=== PATIENT | female | born 1980 | race Caucasian/White ===

== ENCOUNTER 2017-04-14 08:49 | Emergency (ER) | payer BC ==
[~2017-04-14] VITALS: Ht 160 cm; Wt 113.4 kg
[~2017-04-14 08:49] MED LIST: METHYLPRED4 MG; [UNRECOGNIZED DRUG - OTHER]
--- NOTE | 2017-04-14 10:42 | Diagnostic Imaging Report ---
History: Headache and vomiting Comparison studies: None Technique: Axial images were obtained from the skull base to the vertex. Coronal and sagittal reconstructions obtained from the axial data. Findings: Scalp/skull: No abnormalities. No fractures, blastic or lytic lesions. Extra-axial spaces: No masses. No fluid collections. Brain sulci: Appropriate for age. Ventricles: Normal in size and configuration. No hydrocephalus. Parenchyma: No abnormal densities. No masses, hemorrhage, acute or chronic cortical vascular insults. Sellar/suprasellar region: No abnormalities Craniocervical junction: Patent foramen magnum. No Chiari one malformation. IMPRESSION: No abnormalities . Signed by: DR Dariel Walker M.D. on 04/14/2017 10:38 AM
[2017-04-14] MEDS ORDERED: KETOROLAC TROMETHAMINE 60 MG/2 ML VIAL IM ONE ×2 (11:30)
[2017-04-14 12:39] VITALS: BP 139/74
== END 2017-04-14 12:45 | disposition home or self-care (01) ==
LOC: ER 08:49
DX: G43.009 Migraine without aura, not intractable, without status migrainosus (principal)
CPT/HCPCS: 70450; 87400; 99283; J1885

== ENCOUNTER → 2017-09-07 | Outpatient (CLI) | payer BC ==
[2017-09-07 08:39] LABS: BASOPHILS # (AUTO) 0.1 (0.0-0.1); BASOPHILS % 0.7 % (0.0-1.0); EOSINOPHILS # (AUTO) 0.1 (0.0-0.4); EOSINOPHILS % 1.3 % (0.0-6.0); HEMATOCRIT 37.2 % (34.2-44.1); HEMOGLOBIN 12.3 g/dL (12.0-16.0); LYMPHOCYTES # (AUTO) 2.8 (1.0-3.2); LYMPHOCYTES % 27.4 % (18.0-39.1); MEAN CORPUSCULAR HEMOGLOBIN 29.5 pg (28-32); MEAN CORPUSCULAR HGB CONC 33.1 g/dL (31-35); MEAN CORPUSCULAR VOLUME 89.2 fL (81-99); MONOCYTES # (AUTO) 0.8 (0.2-0.8); MONOCYTES % 7.7 % (4.4-11.3); NEUTROPHILS # (AUTO) 6.4 (2.1-6.9); NEUTROPHILS % 62.7 % (38.7-80.0); PLATELET COUNT 295 x10e3/uL (140-360); RED BLOOD COUNT 4.17 x10e6/uL (3.6-5.1); RED CELL DISTRIBUTION WIDTH 13.2 % (11.7-14.4)
[2017-09-07 09:33] LABS: ALANINE AMINOTRANSFERASE 17 IU/L (0-55); ALBUMIN 3.4 g/dL (3.5-5.0); ALKALINE PHOSPHATASE 69 IU/L (40-150); ANION GAP 12.2 mmol/L (8-16); BLOOD UREA NITROGEN 8 mg/dL (7-26); BUN/CREATININE RATIO 11 (6-25); CALCIUM 9.3 mg/dL (8.4-10.2); CARBON DIOXIDE 25 mmol/L (22-29); CHLORIDE 107 mmol/L (98-107); CHOL/HDL RATIO 3.6 (3.0-3.6); CHOLESTEROL 133 MD/DL (0-199); CREATININE, SERUM 0.76 mg/dL (0.57-1.11); EST GLOMERULAR FILTRATION RATE > 60 ML/MIN (60-); GLUCOSE 89 mg/dL (74-118); HDL CHOLESTEROL 37 MG/DL (40-60); LDL CHOLESTEROL 70 MG/DL (60-130); POTASSIUM 4.2 mmol/L (3.5-5.1); SODIUM 140 mmol/L (136-145); TRIGLYCERIDES 128 MG/DL (0-149)
[2017-09-07 09:54] LABS: FREE THYROXINE INDEX 1.9657 (1.4-3.8); THYROID STIMULATING HORMONE 1.345 uIU/mL (0.350-4.940)
== END ==
LOC: LAB 08:24
PROVIDERS: ATTEND Family Medicine
CPT/HCPCS: 36415; 80053; 80061; 83036; 84436; 84443; 84479; 85025

== ENCOUNTER → 2017-12-24 | Outpatient (CLI) | payer BC | LOC: MAMMO 12:48 | PROVIDERS: ATTEND Obstetrics & Gynecology | DX: Z12.31 Encounter for screening mammogram for malignant neoplasm of breast (principal) | CPT/HCPCS: 77067 ==

== ENCOUNTER → 2019-08-16 | Outpatient (CLI) | payer BC | LOC: MAMMO 11:23 | PROVIDERS: ATTEND Family Medicine | DX: Z12.31 Encounter for screening mammogram for malignant neoplasm of breast (principal) | CPT/HCPCS: 77067 ==

== ENCOUNTER → 2019-11-08 | Outpatient (CLI) | payer BC ==
[2019-11-08 10:28] LABS: CHOL/HDL RATIO 4.3 (3.0-3.6)
[2019-11-08 10:33] LABS: THYROID STIMULATING HORMONE 1.573 uIU/mL (0.350-4.940)
== END ==
LOC: LAB 08:20
PROVIDERS: ATTEND Family Medicine
DX: Z13.1 Encounter for screening for diabetes mellitus (principal); Z13.220 Encounter for screening for lipoid disorders; Z76.0 Encounter for issue of repeat prescription; F41.9 Anxiety disorder, unspecified; G47.00 Insomnia, unspecified
CPT/HCPCS: 36415; 80061; 83036; 84443

== ENCOUNTER 2020-01-29 20:24 | Emergency (ER) | payer BC ==
[~2020-01-29] VITALS: Ht 160 cm; Wt 111.1 kg
[2020-01-29] MEDS ORDERED: DEXAMETHASONE6 MG PO (21:01)
[2020-01-29] MEDS ORDERED: AZITHROMYCIN250 MG PO (21:01)
[2020-01-29] MEDS ORDERED: THERAFLU COLD1 EAC4 PO (21:01)
--- NOTE | 2020-01-29 21:01 | Emergency Department Note ---
History of Present Illnes History of Present Illness Chief Complaint: Flu Like Symptoms History of Present Illness This is a 39 year old female c/o flu like symptoms for 3 days and she has been exposed to COVID . she had flu vaccine 4 days ago Historian: Patient Arrival Mode: Car Patient Access Coordinator Required: No Onset (how long ago): day(s) Radiation: Reports non-radiation Duration (how long): day(s) Timing of current episode: constant Progression: worsening Chronicity: new Relieving factors: none Exacerbating factors: none Associated symptoms: Reports cough, Reports fever/chills, Reports malaise, Reports weakness Treatments prior to arrival: none Past Medical/Family History Physician Review I have reviewed the patient's past medical and family history. Any updates have been documented here. Past Medical History Recent Fever: No Clinical Suspicion of Infectio: No New/Unexplained Change in Ment: No Past Medical History: Anxiety, Depression Other Medical History: Past Medical History Anxiety, Depression Past Surgical History: Other Surgery 2 C-SECTIONS Past Surgical History: Other Surgery: 2 C-SECTIONS Social History Smoking Cessation: Never Smoker Counseling Performed: No Alcohol Use: None Any Illegal Drug Use: No Physically hurt or threatened: No (works at [employer]) Other Any Pre-Existing Lines (PICC,: No Review of Systems Review of Systems Constitutional: Reports as per HPI, Reports malaise, Reports weakness EENTM: Reports as per HPI, Reports tearing, Reports nose congestion Cardiovascular: Reports no symptoms Respiratory: Reports as per HPI, Reports chest congestion, Reports cough Gastrointestinal: Reports no symptoms Genitourinary: Reports no symptoms Musculoskeletal: Reports no symptoms Integumentary: Reports no symptoms Neurological: Reports no symptoms Psychological: Reports no symptoms Endocrine: Reports no symptoms Hematological/Lymphatic: Reports no symptoms Physical Exam Related Data Allergies: Coded Allergies: No Known Allergies (Unverified , 10/21/11) Triage Vital Signs Vital Signs Date Time Temp Pulse Resp B/P (MAP) Pulse Ox O2 Delivery O2 Flow Rate FiO2 01/29/20 20:40 96.9 71 18 163/96 99 Vital signs reviewed: Yes Physical Exam CONSTITUTIONAL Constitutional: Present well-developed, Present well-nourished HENT HENT: Present normocephalic, Present atraumatic, Present oropharynx marge ar/moist, Present nasal discharge, Present nasal congestion HENT L/R: Present left ext ear normal, Present right ext ear normal EYES Eyes: Reports PERRL, Reports conjunctivae normal NECK Neck: Present ROM normal PULMONARY Pulmonary: Present effort normal, Present breath sounds normal CARDIOVASCULAR Cardiovascular: Present regular rhythm, Present heart sounds normal, Present capillary refill normal, Present normal rate GASTROINTESTINAL Abdominal: Present soft, Present nontender, Present bowel sounds normal GENITOURINARY Genitourinary: Present exam deferred SKIN Skin: Present warm, Present dry MUSCULOSKELETAL Musculoskeletal: Present ROM normal NEUROLOGICAL Neurological: Present alert, Present oriented x 3, Present no gross motor or sensory deficits PSYCHOLOGICAL Psychological: Present mood/affect normal, Present judgement normal Results Laboratory Lab results reviewed: Yes Laboratory comments flu strep negative Assessment & Plan Medical Decision Making MDM upper respiratory track infection Reassessment Reassessment time: 21:16 Assessment & Plan Final Impression: (1) Upper respiratory infection (2) Suspected COVID-19 virus infection (3) Counseled about COVID-19 virus infection Depart Disposition: HOME, SELF-CARE Last Vital Signs Date Time Temp Pulse Resp B/P (MAP) Pulse Ox O2 Delivery O2 Flow Rate FiO2 01/29/20 20:40 96.9 71 18 163/96 99 Home Meds Active Scripts Azithromycin (Z-KATHRYN) 250 Mg Tablet, 250 MG PO UD, #1 UDPKT Z-Pack Prov:KIRK ALMARAZ MD 01/29/20 Dexamethasone (DEXAMETHASONE) 6 Mg Tablet, 1 TAB PO DAILY, #5 Prov:KIRK ALMARAZ MD 01/29/20 Diphenhydra/Phenyleph/Acetamin (THERAFLU COLD AND COUGH POWDER) 1 Each Powd.pack, 1 PACKET PO Q6H PRN for fever and or pain, #12 Prov:KIRK ALMARAZ MD 01/29/20 Reported Medications Methylprednisolone (Methylpred) 4 Mg Tab.ds.pk 10/21/11 Hydrocodone/Ibuprofen (Reprexain 5-200 Mg Tablet) 1 Each Tablet 10/21/11 Physician Attestation Provider Attestation covid testing sent, since pt is high risk, will consider her as covid patient KIRK ALMARAZ MD Jan 29, 2020 21:01
--- OUTSIDE RECORDS SUMMARY | 2020-01-29 22:21 | XMS REPORT | Continuity of Care Document ---
Author Author [facility] t Organization [facility] Address [address] [place] [address] Dr. Richey [address] [place] [id number] Phone Unavailable Care Team Providers Care Perfect Binder Feeder Offbearer Name Role Phone Hector NORMAN Attphys Unavailable Nicole WILLS Attphys Unavailable Yolande DAIGLE Attphys Unavailable Problems This patient has no known problems. Allergies, Adverse Reactions, Alerts This patient has no known allergies or adverse reactions. Medications This patient has no known medications. Procedures This patient has no known procedures. Results Test Description Test Time Test Comments Results Result Comments Source MAMMOGRAPHY DIGITAL SCR BILAT 2019-08-16 12:58:00 [place] [address] Patient Name: SHANNAN ARREOLA MR #: [id number] : 1980 Age/Sex: 38/F Req #: [id number] [facility] Physician: Ordered by: SANJUANA NORMAN MD Report #: [id number] Location: MAMMO Room/Bed: Procedure: [id number] MG/MAMMOGRAPHY DIGITAL SCR BILAT Exam Date: 08/16/19 Exam Time: 1140 REPORT STATUS: Signed #[id number] - MGSCRBIL #BILATERAL DIGITAL SCREENING MAMMOGRAM WITH CAD: 08/16/2019 CLINICAL: Routine screening. Comparison is made to exams dated: 12/24/2017 mammogram and 06/26/2016 mammogram - [facility]. There are scattered fibroglandular elements in both breasts. Current study was also evaluated with a Computer Aided Detection (CAD) system. There are post operative findings in the right breast. No significant masses, calcifications, or other findings are seen in either breast. There has been no significant interval change. IMPRESSION: BENIGN There is no mammographic evidence of malignancy. A 1 year screening mammogram is recommended. The patient will be notified by letter of the results. JULITA weaver/geena:09/01/2019 16:12:08 Time Lock Expert: Barbara OAKLEY(R)(M), [facility] letter sent: Compared to Prior B9 Mammogram BI-RADS: 2 Benign Dictated By: JULITA COLON MD 161 Transcribed By: GEENA on 09/01/19 161 COPY TO: SANJUANA NORMAN MD MAMMOGRAPHY DIGITAL SCR BILAT 2017-12-24 14:24:00 [place] [address] Patient Name: SHANNAN ARREOLA MR #: [id number] : 1980 Age/Sex: 37/F Req #: [id number] Adm Physician: Ordered by: OSCAR WILLS Report #: [id number] Location: MAMMO Room/Bed: Procedure: [id number] MG/MAMMOGRAPHY DIGITAL SCR BILAT Exam Date: 12/24/17 Exam Time: 1300 REPORT STATUS: Signed #[id number] - MGSCRBIL #BILATERAL DIGITAL SCREENING MAMMOGRAM WITH CAD: 12/24/2017 CLINICAL: Routine screening. Comparison is made to exams dated: 06/26/2016 mammogram and 08/28/2015 mammogram - [facility]. There are scattered fibroglandular elements in both breasts. Current study was also evaluated with a Computer Aided Detection (CAD) system. No new significant masses, calcifications, or other findings are seen in either breast. There are biopsy clips in the right breast. IMPRESSION: BENIGN There is no mammographic evidence of malignancy. A 1 year screening mammogram is recommended. The patient will be notified by letter of the results. Cliff Crook M.D. ks/:12/28/2017 10:40:16 Time Lock Expert: Barbara OAKLEY(R)(M), [facility] letter sent: Normal Exam Mammogram BI-RADS: 2 Benign Dictated By: CLIFF CROOK MD 1040 Transcribed By: GEENA on 12/28/17 1040 COPY TO: OSCAR WILLS CT BRAIN WO [place] [address] Patient Name: SHANNAN ARREOLA MR #: [id number] : 1980 Age/Sex: 36/F Req #: [id number] Adm Physician: Ordered by: ASHWINI DAIGLE MD Report #: [id number] Location: ER Room/Bed: Procedure: [id number] CT/CT BRAIN WO Exam Date: 04/14/17 Exam Time: 0935 REPORT STATUS: Signed History: Headache and vomiting Comparison studies: None Technique: Axial images were obtained from the skull base to the vertex. Coronal and sagittal reconstructions obtained from the axial data. Findings: Scalp/skull: No abnormalities. No fractures, blastic or lytic lesions. Extra-axial spaces: No masses. No fluid collections. Brain sulci: Appropriate for age. Ventricles: Normal in size and configuration. No hydrocephalus. Parenchyma: No abnormal densities. No masses, hemorrhage, acute or chronic cortical vascular insults. Sellar/suprasellar region: No abnormalities Craniocervical junction: Patent foramen magnum. No Chiari one malformation. IMPRESSION: No abnormalities . Signed by: DR Dariel Walker M.D. on 04/14/2017 10:38 AM Dictated By: DARIEL NEGRETE MD 1038 Transcribed By: JASON on 04/14/17 1038 COPY TO: ASHWINI DAIGLE MD
== END 2020-01-29 21:00 | disposition home or self-care (01) ==
LOC: FSED 20:45
DX: J06.9 Acute upper respiratory infection, unspecified (principal); R05 Cough; Z11.59 Encounter for screening for other viral diseases; F41.9 Anxiety disorder, unspecified; F32.9 Major depressive disorder, single episode, unspecified
CPT/HCPCS: 81003; 81025; 83518; 87400; 99283; U0002

== ENCOUNTER → 2020-03-22 | Outpatient (CLI) | payer OTHER ==
[~2020-03-22] MED LIST changes: +AZITHROMYCIN250 MG PO; +DEXAMETHASONE6 MG PO; +THERAFLU COLD1 EAC4 PO
== END ==
LOC: LAB 16:42
DX: U07.1 COVID-19 (principal)
CPT/HCPCS: U0002

== ENCOUNTER → 2020-08-06 | Outpatient (CLI) | payer OTHER ==
[~2020-08-06] MED LIST changes: +COVID-19 VACC, MRNA(MODERNA)/PF 100 MCG/0.5 ML VIAL IM ONE
== END | disposition home or self-care (01) ==
LOC: VACCPMC 11:53
DX: Z23 Encounter for immunization (principal); Z20.822 Contact with and (suspected) exposure to COVID-19
CPT/HCPCS: 91301

== ENCOUNTER → 2020-09-03 | Outpatient (CLI) | payer OTHER ==
[~2020-09-03] MED LIST changes: -COVID-19 VACC, MRNA(MODERNA)/PF 100 MCG/0.5 ML VIAL IM ONE
== END | disposition home or self-care (01) ==
LOC: VACCPMC 11:41
DX: Z23 Encounter for immunization (principal); Z20.822 Contact with and (suspected) exposure to COVID-19

== ENCOUNTER 2020-09-30 03:45 | Emergency (ER) | payer OTHER ==
[~2020-09-30] VITALS: Ht 160 cm; Wt 111.6 kg
[2020-09-30 05:16] LABS: HEMATOCRIT 38.6 % (34.2-44.1); HEMOGLOBIN 12.4 g/dL (12.0-16.0)
[2020-09-30 06:07] VITALS: BP 118/70
[2020-10-03] MEDS ORDERED: CELEXA20 MG PO (08:28)
[2020-10-03] MEDS ORDERED: AMBIEN10 MG PO (08:28)
[2020-10-03] MEDS ORDERED: IBUPROFEN400 MG PO (08:28)
[2020-10-03] MEDS ORDERED: ADDERALL 30 MG30 MG PO (08:28)
== END 2020-09-30 06:05 | disposition home or self-care (01) ==
LOC: ER 05:16
DX: N93.8 Other specified abnormal uterine and vaginal bleeding (principal); F41.9 Anxiety disorder, unspecified
CPT/HCPCS: 36415; 84702; 85014; 85018; 99283

== ENCOUNTER → 2020-10-04 | Day surgery (SDC) | payer OTHER ==
[2020-10-03 14:49] LABS: BASOPHILS # (AUTO) 0.1 (0.0-0.1); BASOPHILS % 0.8 % (0.0-1.0); EOSINOPHILS # (AUTO) 0.2 (0.0-0.4); EOSINOPHILS % 1.4 % (0.0-6.0); HEMATOCRIT 35.1 % (34.2-44.1); HEMOGLOBIN 11.1 g/dL (12.0-16.0); LYMPHOCYTES % 27.5 % (18.0-39.1); MEAN CORPUSCULAR HEMOGLOBIN 28.5 pg (28-32); MEAN CORPUSCULAR HGB CONC 31.6 g/dL (31-35); MONOCYTES # (AUTO) 0.8 (0.2-0.8); MONOCYTES % 7.4 % (4.4-11.3); NEUTROPHILS # (AUTO) 6.8 (2.1-6.9); NEUTROPHILS % 62.6 % (38.7-80.0); PLATELET COUNT 296 x10e3/uL (140-360); RED CELL DISTRIBUTION WIDTH 13.8 % (11.7-14.4)
[~2020-10-04] MED LIST changes: +ACETAMINOPHEN/CODEINE 300MG - 30MG TAB ONE; +ADDERALL 30 MG30 MG PO; +AMBIEN10 MG PO; +CELEXA20 MG PO; +DEXAMETHASONE SOD PHOS INJ 4 MG/ML VIAL ONE; +FENTANYL CITRATE/PF 100MCG/2 ML INJ ONE; +HYDROMORPHONE 1MG/1ML INJ ONE; +IBUPROFEN400 MG PO; +KETOROLAC TROMETHAMINE 30 MG/ML VIAL ONE; +LIDOCAINE HCL 2% LOCAL INJ 5 ML SDV VIAL INJ ONE; +MIDAZOLAM HCL 2 MG/2 ML VIAL ONE; +MORPHINE SULFATE INJ 2 MG/ML SYR ONE; +ONDANSETRON HCL INJ 2MG/ML 2ML 2 MG/ML VIAL ONE; +PHENYLEPHRINE HCL 1% 10 MG/ML VIAL ONE; +POVIDONE IODINE 0.05% 0.05 % ML PO ONE; +PROPOFOL IV EMULSION 10 MG/ML 20 ML VIAL ONE; +SCOPOLAMINE 1.5 MG PATCH ONE; +SEVOFLURANE INHAL SOLN 250 ML PEN BTL ONE
[2020-10-04 17:45] VITALS: BP 127/67
== END | disposition home or self-care (01) ==
LOC: OR 11:39
PROVIDERS: ATTEND Obstetrics & Gynecology
DX: N93.9 Abnormal uterine and vaginal bleeding, unspecified (principal); N92.3 Ovulation bleeding; K29.70 Gastritis, unspecified, without bleeding; F41.9 Anxiety disorder, unspecified; G47.00 Insomnia, unspecified; Z80.3 Family history of malignant neoplasm of breast; N84.0 Polyp of corpus uteri
CPT/HCPCS: 36415; 58563; 84702; 85025; J1100; J1170; J1885; J2001; J2250; J2270; J2370; J2405; J2704; J3010